=== PATIENT | female | born 2000 | race Caucasian/White ===

== ENCOUNTER 2024-03-26 09:13 | Emergency (ER) | payer MEDICAID ==
[~2024-03-26] VITALS: Ht 149.9 cm; Wt 54.5 kg
[2024-03-26 09:25] VITALS: TEMP 98.3
[2024-03-26] MEDS ORDERED: NS 1,000 ML IV ONE (09:45)
[2024-03-26] MEDS ORDERED: Ondansetron 4 MG/2 ML VIAL IV ONE (09:45)
[2024-03-26 10:12] LABS: BASO % 0.5 % (0.0-2.0); EOS % 0.3 % (0.0-4.0); GRAN # 6.2 K/mm3 (1.4-6.5); GRAN % 77.7 % (42.2-75.2); HEMATOCRIT 37.4 % (37.0-47.0); HEMOGLOBIN 12.9 g/dl (12.5-16.0); LYMPH # 1.4 K/mm3 (1.2-3.4); LYMPH % 17.4 % (20.0-51.0); MEAN CELL VOLUME 95 fl (80.0-100.0); MEAN CORPUSCULAR HEMOGLOBIN 33 pg (27-31); MEAN CORPUSCULAR HGB CONC 35 g/dl (33.0-37.0); MEAN PLATELET VOLUME 9.6 fl (7.4-10.4); MONO # 0.3 K/mm3 (0.1-0.6); MONO % 3.7 % (1.7-9.3); PLATELET COUNT 422 K/mm3 (130-400); RED BLOOD COUNT 3.93 M/mm3 (4.10-5.30); REDCELL DISTRIBUTION WIDTH-CV 11.7 % (11.5-14.5)
[2024-03-26 10:35] LABS: ALANINE AMINOTRANSFERASE 7 U/L (0-55); ALBUMIN 4.1 g/dL (3.5-5.0); ALKALINE PHOSPHATASE 32 U/L (40-150); ANION GAP 11 mmol/L (7-16); AST,SGOT 17 U/L (5-34); BILIRUBIN,TOTAL 0.7 mg/dL (0.2-1.2); CALCIUM 10.2 mg/dL (8.4-10.2); CHLORIDE 109 mEq/L (98-107); CREATININE, serum 0.59 mg/dL (0.57-1.11); GLUCOSE 91 mg/dL (70-99); LIPASE 23 U/L (8-78); POTASSIUM 3.7 mEq/L (3.5-4.5); SODIUM 141 mEq/L (136-145); TOTAL PROTEIN 7.5 g/dl (6.2-8.1)
[2024-03-26 10:37] LABS: BLOOD UREA NITROGEN < 5 mg/dL (7-19)
[2024-03-26 11:08] LABS: HCG,QUANTITATIVE 66140 mIU/mL
[2024-03-26 11:52] LABS: PH 8.5 (5.0-8.5); URINE APPEARANCE TURBID (CLEAR/HAZY); URINE BLOOD NEGATIVE (NEGATIVE); URINE COLOR YELLOW (YELLOW); URINE GLUCOSE NEGATIVE (NEGATIVE); URINE KETONE 2+ (NEGATIVE); URINE NITRATE NEGATIVE (NEGATIVE); URINE PROTEIN(semi-quant) 1+ (NEGATIVE)
[2024-03-26] MEDS ORDERED: Cephalexin 250 MG CAP PO ONE (12:45)
[2024-03-26] MEDS ORDERED: CEPHALEXIN250 M1 PO (12:47)
[2024-03-26 13:18] VITALS: BP 99/65; PULSE 98
[2024-03-26 15:57] LABS: COLLECTION METHOD CLEAN CATCH
== END 2024-03-26 13:24 | disposition home or self-care (01) ==
LOC: COL.ER 09:13
PROVIDERS: Family Medicine
DX: O21.0 Mild hyperemesis gravidarum (principal); Z3A.12 12 weeks gestation of pregnancy
CPT/HCPCS: J2405; J7030

== ENCOUNTER 2024-05-02 13:00 | Inpatient (IN) | payer MEDICAID ==
[2024-05-02] VITALS (10 sets, daily range): BP systolic 98–122; BP diastolic 56–70; PULSE 72–118; TEMP 97.9–98.8
[~2024-05-02] VITALS: Ht 149.9 cm; Wt 55.9 kg
[~2024-05-02 13:00] MED LIST: CEPHALEXIN250 M1 PO
[2024-05-02 13:25] LABS: BASO # 0.1 K/mm3 (0.0-0.2); BASO % 0.3 % (0.0-2.0); EOS % 0.2 % (0.0-4.0); GRAN # 19.7 K/mm3 (1.4-6.5); GRAN % 85.1 % (42.2-75.2); HEMATOCRIT 33.2 % (37.0-47.0); HEMOGLOBIN 11.5 g/dl (12.5-16.0); LYMPH # 2.5 K/mm3 (1.2-3.4); LYMPH % 10.9 % (20.0-51.0); MEAN CELL VOLUME 95 fl (80.0-100.0); MEAN CORPUSCULAR HEMOGLOBIN 33 pg (27-31); MEAN CORPUSCULAR HGB CONC 35 g/dl (33.0-37.0); MEAN PLATELET VOLUME 9.7 fl (7.4-10.4); MONO # 0.7 K/mm3 (0.1-0.6); MONO % 2.8 % (1.7-9.3); PLATELET COUNT 496 K/mm3 (130-400); RED BLOOD COUNT 3.51 M/mm3 (4.10-5.30); REDCELL DISTRIBUTION WIDTH-CV 11.9 % (11.5-14.5)
[2024-05-02] MEDS ORDERED: NS 1,000 ML IV ONE (13:30)
[2024-05-02] MEDS ORDERED: LR & Oxytocin 500 ML IV SCH (13:30)
[2024-05-02] MEDS ORDERED: LR 1,000 ML IV SCH (13:30)
[2024-05-02] MEDS ORDERED: miSOPROStol 200 MCG TAB VG PRN (13:30)
[2024-05-02] MEDS ORDERED: HYDROmorphone 0.5 MG/0.5 ML SYRINGE IV ONE (13:30)
[2024-05-02 13:43] LABS: COLLECTION METHOD CLEAN CATCH
[2024-05-02 13:45] LABS: ALBUMIN 3.2 g/dL (3.5-5.0); BILIRUBIN,TOTAL 0.2 mg/dL (0.2-1.2); CREATININE, serum 0.6 mg/dL (0.57-1.11); TOTAL PROTEIN 7.3 g/dl (6.2-8.1)
--- NOTE | 2024-05-02 13:45 | NUR ---
Pt arrives at ER via ambulance around 1300. Lower body of infant presents feet first out of vaginal opening. Dr. Wooten in room, attempts to deliver infant, but is unsuccessful. Pt given Dilauded for pain by ER nurse. Per Dr. Wooten, pt transferred to L&D. Pt arrives via bed to LR1 around 1315, Dr. Wooten at bedside. Orders received. Cytotec placed by Dr. Wooten at 1334. Physician discusses plan of care with patient, pt and FOB verbalize understanding. Pt denies needs at this time.
[2024-05-02 13:58] LABS: PH 6.5 (5.0-8.5); URINE APPEARANCE CLOUDY (CLEAR/HAZY); URINE BLOOD 3+ (NEGATIVE); URINE COLOR ORANGE (YELLOW); URINE GLUCOSE NEGATIVE (NEGATIVE); URINE KETONE NEGATIVE (NEGATIVE); URINE NITRATE NEGATIVE (NEGATIVE); URINE PROTEIN(semi-quant) 1+ (NEGATIVE)
--- NOTE | 2024-05-02 14:00 | NUR ---
NO EFM/TOCO TRACING PER . PT COMFORTABLE IN BED, REPOSITIONED FOR COMFORT NEEDED.
[2024-05-02 14:03] LABS: TRICYCLIC ANTIDEPRESS URINE NEGATIVE (NEGATIVE)
[2024-05-02] MEDS ORDERED: ZOFRAN 4MG T4 MG/TAB PO (14:20)
[2024-05-02] MEDS ORDERED: PRENATAL (14:20)
[2024-05-02] MEDS ORDERED: Ibuprofen 800 MG TAB PO SCH ×2 (14:46→15:30)
--- NOTE | 2024-05-02 14:47 | NUR ---
1442: PT EXPERIENCING STRONG URGE TO PUSH AND BEAR DOWN, REPORTS INCREASE PAIN WITH CONTRACTIONS. 1447: PHYSICAN ASSISTED DELIVERY WITH MANUAL DELIVERY OF THE ARM AND HEAD PER . PT TOLERATED DELIVERY WELL. MATERNAL LOCHIA WNL. LR BOLUS INFUSING. MATERNAL VITAL SIGNS STABLE.
[2024-05-02 14:49] LABS: SQUAMOUS EPITHELIAL 0-2 /hpf (0-10); URINE BACTERIA MODERATE /hpf (NONE SEEN); URINE RBC >50 /hpf (0-2)
--- NOTE | 2024-05-02 14:55 | NUR ---
1455: OF INTACT PLACENTA AT THIS TIME, DELIVERED INTO BED. MATERNAL LOCHIA SCANT, FUNDUS FIRM 1BELOW UMBILICUS. MATERNAL VITAL SIGNS STABLE. NO PITOCIN BOLUS AT THIS TIME PER DR.DIKEMAN KNOX. LR BOLUS REMAINS INFUSING. PLACENTA PLACED IN BASIN AND SENT TO PATHOLOGY. PT HOLDING DEMISE, TEARFUL BUT APPROPRIATE. FATHER OF BABY REMAINS AT BEDSIDE THROUGHOUT.
[2024-05-02] MEDS ORDERED: oxyCODONE 5 MG TAB PO PRN ×2 (15:00→15:30)
[2024-05-02] MEDS ORDERED: fentaNYL 50 MCG/ML 2 ML VIAL IV ONE (15:00)
--- NOTE | 2024-05-02 15:28 | NUR ---
CONSTRUCTION SCHEDULER FAWAD WICK NOTIFIED OF DELIVERY OF DEMISE.
[2024-05-02] MEDS ORDERED: Measles/Mumps/Rubella Virus Vaccine Live w Diluent 0.5 ML VIAL SQ SCH (15:30)
[2024-05-02] MEDS ORDERED: Naloxone 0.4 MG/ML VIAL IV PRN (15:30)
[2024-05-02] MEDS ORDERED: Witch Hazel 50% Pads Bulk TUB TP PRN (15:30)
[2024-05-02] MEDS ORDERED: Acetaminophen 500 MG TAB PO SCH (15:30)
[2024-05-02] MEDS ORDERED: Tdap Vaccine 0.5 ML SYRINGE IM SCH (15:30)
[2024-05-02] MEDS ORDERED: Magnes Hydrox (MOM) 80 MG/ML 30 ML CUP PO PRN (15:30)
[2024-05-02] MEDS ORDERED: Mag/Al Hydrox/Simeth Susp 30 ML CUP PO PRN (15:30)
[2024-05-02] MEDS ORDERED: Loratadine 10 MG TAB PO PRN (15:30)
[2024-05-02] MEDS ORDERED: Phenylephrine/Mineral Oil/Petrolatum 57 GM TUBE RC PRN (15:30)
--- NOTE | 2024-05-02 15:41 | NUR ---
[facility] notified, referral number [id number].
[2024-05-02] MEDS ORDERED: cefTRIAXone 1 G in Water For Injection,Sterile 10 ML IV ONE (16:00)
--- NOTE | 2024-05-02 16:22 | NUR ---
TISSUE FROM INFANT OBTAINED BY IN NURSERY PROCEDURE ROOM AT THIS TIME FOR ANORA GENETIC TESTING KIT PER PT REQUEST. FROM UNIT WITH BOXED SAMPLE IN HAND AT THIS TIME.
[2024-05-02] MEDS ORDERED: Sennosides/Docusate 8.6-50 MG TAB PO SCH (17:00)
[2024-05-02] MEDS ORDERED: IBU800 M1 PO (17:18)
[2024-05-02] MEDS ORDERED: ROXICODONE 55 MG/TAB PO (17:18)
--- NOTE | 2024-05-02 18:20 | NUR ---
SHIFT REPORT FROM DAYA AT BEDSIDE. PT HOLDING BABY. PTS BOYFRIEND AND HER MOTHER IN ROOM. OFFERED CONDOLENCES AND ASSISTANCE IN ANY WAY THEY NEED, JUST LET ME KNOW. 1844 DINNER TRAY BROUGHT IN. DAD HOLDING THE BABY AND PT IS EATING.
--- NOTE | 2024-05-02 18:30 | NUR ---
PT HOLDING BABY, PT'S BOYFRIEND AND MOM ARE AT BEDSIDE. DISCUSSED WITH PT IF SHE HAD DECIDED HER PLANS FOR THE BABY. PT STATES SHE IS NOT READY YET. THEY WANT TO KEEP THE BABY IN THE ROOM WITH THEM. SHE HAS MORE FAMILY COMING TO SEE THE BABY. AFTER THEY LEAVE SHE IS FINE WITH THE BABY BEING PLACED ON ICE TO KEEP COOL.
--- NOTE | 2024-05-02 18:45 | NUR ---
CHRISSY IN TO TALK AND PRAY WITH THE FAMILY. CHRISSY TOK THE FOB TO THE CHRISSY TO TALK TO HIM AND PRAY WITH HIM. HE IS TAKING IT VERY HARD. CHRISSY LEFT SOME ARTICLES AND PAMPLETS IN THE BEREAVMENT BOX FOR THE PARENTS.
--- NOTE | 2024-05-02 19:55 | NUR ---
Data: Lunchroom Monitor resolution analyst requested to perform baptist for demise. Mother stated name as Pari Whiteside. Father is Carlos Collrigo. Baby is eFmi Camargo. Assessment: grief; shock; desired baptist for baby. Plan of Care: Lunchroom Monitor provided baptist ceremony. Placed baptist certificate, recognition of life certificate, shell, and grief support resources in wooden box. Lunchroom Monitor met with Carlos in the chapel for prayer and grief counseling. All family expressed appreciation for the baptist ceremony.
[2024-05-02] MEDS ORDERED: MACROBID 1100 MG/CAP PO (20:06)
--- NOTE | 2024-05-02 20:15 | NUR ---
PT ATE REGULAR DIET. FAMILY ARE GONE NOW. PT STATES SHE IS FINE FOR THE BABY TO BE COOLED AND ASKED IF SHE CAN STAY WITH THEM. PT WAS GIVEN THE OPTION TO GO HOME OR STAY THE NIGHT. PT REQUESTS TO STAY THE NIGHT, OFFERED TO TRANSFER HER TO WITH A BIGGER BED. SHE DOES WANT TO MOVE AND WANTS HER BOYFRIEND AND THE BABY TO STAY WITH HER. ICE PACK AND BED MADE UP AND PLACED IN ROOM 214. PT WAS TRANSFERED TO ROOM 214 VIA WHEELCHAIR. I BROUGHT BABY INTO ROOM. PT TOOK HER TO HOLD. I SHOWED THEM HOW TO PLACE BABY IN BASKET WHEN THEY ARE READY TO GO TO BED. PT HAS DECIDED THEY WILL HAVE THE BABY CREMATED AT [facility]. BUT THEY DO NOT WANT HER TO GO UNTIL TOMORROW AND THEY WANT TO BE HERE WHEN THE HOME COMES TO PICK HER UP. I EXPLAINED THAT IS FINE AND THERE WILL BE ALOT OF CONSENTS FOR THEM TO SIGN. PT AND FOB STATE THAT IS FINE. ORIENTED PT TO THE ROOM, CALL LIGHT AND BATHROOM. OFFERED PAIN MEDS. PT DECLINED. PT REQUESTED DRINKS AND SNACKS.
[2024-05-02] MEDS ORDERED: traZODone 50 MG TAB PO PRN (21:00)
--- NOTE | 2024-05-02 21:15 | NUR ---
PT AMB TO BR TO VOID AND CLEAN UP. PT DECLINED TO TAKE AT SHOWER AT THIS TIME. PT TRANSFERED IN WHEEL CHAIR TO PP ROOM 214.
[2024-05-03 03:50] VITALS: BP 105/67; PULSE 76; TEMP 98.1
--- NOTE | 2024-05-03 03:57 | NUR ---
PT LYING IN BED WITH THE BABY IN THE BASKET ON ICE. THE ICE BAGS WERE REPLACED AND COVERED WITH A BLANKET.
--- NOTE | 2024-05-03 08:00 | NUR ---
THIS RN SUPPORTING AT PT BEDSIDE. IN CRADLE IN BETWEEN PT AND PT SIGNIFICANT OTHER/FATHER OF BABY, ICE PACKS REPLACED IN CRADLE TO MAINTAIN COOLING TEMPERATURE FOR INFANT. PT DENIES PAIN AND REFUSES PAIN MEDICATION AND STOOL SOFTENER AT THIS TIME. PT VS STABLE, FUNDUS FIRM DOWN 2 FINGEBREADTHS, SCANT LOCHIA, PT DENIES PASSING CLOTS. EXPLAINED TO PT TO NOTIFY RN WHEN THEY WOULD LIKE HOME TO COME GET INFANT, PT VERBALLY UNDERSTANDING AND EXPLAINS THEY ARE WAITING FOR MORE FAMILY TO ARRIVE. PT AND SIGNIFICANT OTHER HAVE NO FURTHER QUESTIONS AT THIS TIME.
[2024-05-03 08:01] VITALS: BP 91/46; PULSE 56; TEMP 98.4
--- NOTE | 2024-05-03 12:20 | NUR ---
PT ASKS RN TO CALL [facility] TO COME GET FOR CREMATION. THIS RN NOTIFIES HOME WHO WILL CONTACT THE DIRECTOR. DIRECTOR MICHAEL TAVERAS EXPLAINING THAT HE IS AT A PRIOR SERVICE AND WILL BE ABLE TO COME "IN A BIT." MICHAEL DESCRIBED THAT HE WOULD CALL THIS RN HOSPITAL NUMBER WHEN HE IS ON HIS WAY. PT AND FAMILY NOTIFIED.
--- NOTE | 2024-05-03 12:24 | NUR ---
Data: Patient declined spiritual care visit offered during Resident Service Coordinator rounds stating that she is very tired. Assessment: None at this time. Plan of Care: Chaplains will remain available as needed/requested while Mother and babies are admitted to this hospital.
--- NOTE | 2024-05-03 12:28 | NUR ---
Data: Follow-up visit from previous evening when Animal Science Professor baptized baby. Baby is still in room with Patient and Patient's Mother. Mother stated there are a couple more family members arriving soon to see baby. Animal Science Professor spoke with the baby's Father for a very brief moment near the nurses' station. His Parents and Grandmother are arriving soon. Assessment: Mother is providing strong support for Patient. Patient is tearful. Baby's Father appears to have not gotten any sleep. Plan of Care: Animal Science Professor provided a prayer. Chaplains will remain available as needed/requested while Patient is admitted to this hospital.
--- NOTE | 2024-05-03 14:20 | NUR ---
PT PHARMACY CHANGED DUE TO CURRENT PHARMACY CLOSED ON WEEKENDS. PT ALSO REQUESTED DOCTORS NOTE, NOTIFIED THAT PT WOULD LIKE NOTE.
[2024-05-03] MEDS ORDERED: MOTRIN 800800 MG/TAB PO (14:44)
--- NOTE | 2024-05-03 15:00 | NUR ---
MICHAEL FROM [facility] ON [facility] UN[facility]. THIS RN ASKS PT AND PT PARTNER IF THEY ARE READY FOR MICHAEL TO COME IN PT ROOM, PT EXPLAINS THAT "WE WOULD LIKE TO TAKE SHOWERS AND THEN THEY WOULD BE READY TO LEAVE." THIS RN NOTIFIES MICHAEL AT NURSING DESK OUTSIDE PT ROOM, MICHAEL EXPLAINS HE WILL BE BACK WHEN PT IS READY.
--- NOTE | 2024-05-03 16:17 | NUR ---
SW and SW trainee met with patient and patient's partner/father to offer support to include resource information for counseling and community resources pertaining loss. arrangements were already established by patient. SW encouraged patient to reach out if she and her partner needed additional support.
--- NOTE | 2024-05-03 16:23 | NUR ---
PLACED IN [facility] CR[facility] AND CARRIED OFF UNIT VIA MICHAEL Vazquez FROM [facility]. PT AND PARTNER VERBALLY UNDERSTANDING, MICHAEL GIVEN COPY OF INFANT DISCLOSURE. CARRIED OFF UNIT VIA MICHAEL Vazquez AT 1623. PT AND PARTNER WANTING SPACE IN ROOM AT THIS TIME.
--- NOTE | 2024-05-03 16:40 | NUR ---
PT AMBULATORY OFF UNIT WITH PARTNER, PT VERBALLY UNDERSTANDING OF DISCHARGE INSTRUCTIONS AND SIGNED DISCHARGE UNDERSTANDING.
[2024-05-06 05:37] LABS: BETA-2 GPI IGG AABS <9 (0-20); BETA-2 GPI IGM AABS <9 (0-32)
[2024-05-06 11:14] LABS: TOXOPLASMA AB, IGG <3.0 (()); TOXOPLASMA AB, IGM <3.0 (())
== END 2024-05-03 16:40 | disposition home or self-care (01) | DRG 779 ==
LOC: COL.ER 13:00 → LDRO 13:01 → COL.ER 13:01 → LDR 13:01 → EDSTATUS 13:10 → LDRO 13:28 → LDR 13:29 → OB 21:00
PROVIDERS: Family Medicine; ADMIT Obstetrics & Gynecology
PROC: 10D17Z9 Manual Extraction of Products of Conception, Retained, Via Natural or Artificial Opening (ICD-10-PCS; principal; 2024-05-02)
DX: O03.4 Incomplete spontaneous abortion without complication (principal); N39.0 Urinary tract infection, site not specified; Z3A.18 18 weeks gestation of pregnancy
CPT/HCPCS: J0696; J1171; J3010; J7120